=== PATIENT | male | born 1985 | race Caucasian/White ===

== ENCOUNTER 2020-07-13 19:52 | Emergency (ER) | payer OTHER ==
[2020-07-13] MEDS ORDERED: PREDNISONE 20MG20 MG PO (21:21)
[2020-07-13] MEDS ORDERED: ATARAX25 MG PO (21:21)
== END 2020-07-13 21:33 | disposition home or self-care (01) ==
LOC: FER 19:52
DX: L50.9 Urticaria, unspecified (principal)
CPT/HCPCS: 96372; 99282; J1040; J3410